=== PATIENT | female | born 1980 | race Caucasian/White ===

== ENCOUNTER 2017-04-26 13:06 | Emergency (ER) | payer OTHER ==
[2014-10-04 14:26] VITALS: BMI 29.2
[~2017-04-26 13:06] MED LIST: ELAVIL75 MG PO; HYDROCODONE-APA1 TAB PO; NEURONTIN800 MG PO; REQUIP5 MG PO
== END 2017-04-26 16:25 | disposition home or self-care (01) ==
LOC: D.ER 13:06
DX: M54.5 Low back pain (principal); S39.012A Strain of muscle, fascia and tendon of lower back, initial encounter; X58.XXXA Exposure to other specified factors, initial encounter; Y93.89 Activity, other specified; Y92.89 Other specified places as the place of occurrence of the external cause; M62.838 Other muscle spasm

== ENCOUNTER 2017-05-27 16:35 | Emergency (ER) | payer OTHER ==
[2014-10-04 14:26] VITALS: BMI 29.2
== END 2017-05-27 18:34 | disposition home or self-care (01) ==
LOC: D.ER 16:35
DX: S69.91XA Unspecified injury of right wrist, hand and finger(s), initial encounter (principal); W22.8XXA Striking against or struck by other objects, initial encounter; F17.200 Nicotine dependence, unspecified, uncomplicated

== ENCOUNTER → 2017-05-27 | Emergency (ER) | payer OTHER ==
[2014-10-04 14:26] VITALS: BMI 29.2
== END | disposition left against medical advice (07) ==
LOC: D.ER 14:35
DX: R52 Pain, unspecified (principal)

== ENCOUNTER 2017-06-22 14:44 | Emergency (ER) | payer OTHER ==
[2014-10-04 14:26] VITALS: BMI 29.2
== END 2017-06-22 18:30 | disposition home or self-care (01) ==
LOC: D.ER 14:44
DX: S99.921A Unspecified injury of right foot, initial encounter (principal); X58.XXXA Exposure to other specified factors, initial encounter; Y93.89 Activity, other specified; Y92.89 Other specified places as the place of occurrence of the external cause; F17.200 Nicotine dependence, unspecified, uncomplicated

== ENCOUNTER 2017-07-22 08:31 | Emergency (ER) | payer OTHER ==
[2014-10-04 14:26] VITALS: BMI 29.2
== END 2017-07-22 09:27 | disposition home or self-care (01) ==
LOC: D.ER 08:31
DX: S93.401A Sprain of unspecified ligament of right ankle, initial encounter (principal); X58.XXXA Exposure to other specified factors, initial encounter; Y93.89 Activity, other specified; Y92.89 Other specified places as the place of occurrence of the external cause; F17.200 Nicotine dependence, unspecified, uncomplicated

== ENCOUNTER 2019-03-16 11:30 | Day surgery (SDC) | payer MEDICAID ==
[2019-03-14 12:51] LABS: HEMATOCRIT 37.8 % (36.0-48.0); HEMOGLOBIN 12.9 g/dL (12-16); MCH 30.4 pg (26.0-34.0); MCHC 34.1 g/dL (31.0-37.0); MCV 88.9 fL (80.0-100.0); MEAN PLATELET VOLUME 10.3 fL (7.4-10.4); RBC 4.25 10x6/uL (4.00-5.40); RDW 13.8 % (11.5-14.5); WBC 5.6 10x3/uL (4.8-10.8)
[~2019-03-16 11:30] MED LIST changes: +PAMELOR 25 MG C25 MG PO; +ROBAXIN500 MG PO; +TRAZODONE HCL150 MG PO
[2019-03-16 13:01] VITALS: BP 128/83; BMI 28.0
[2019-03-16] MEDS ORDERED: HYDROCODON-ACE1 EA10 PO (14:54)
--- NOTE | 2019-03-16 17:08 | NUR ---
PATIENT AMBULATES AROUND ROOM WITHOUT UNSTEADINESS. RIGHT ARM SECURELY IN SLING SHOT SLING. LEFT ARM PIV DC'D WITH TIP INTACT. ASSISTED PATIENT TO DRESS IN PERSONAL CLOTHING
--- NOTE | 2019-03-16 17:23 | NUR ---
DISCHARGE INSTRUCTIONS REVIEWED WITH PATIENT, DISCHARGED HOME VIA WHEELCHAIR TO PRIVATE VEHICLE WITH FAMILY MEMBER
--- NOTE | 2019-03-20 08:25 | OP ---
PATIENT NAME: ARLEN ROSS MEDICAL RECORD: [id number] :82 LOCATION:[facility] ADMISSION DATE: SURGEON: HUYEN HOLLIS MD DATE OF OPERATION: 03/16/2019 PREOPERATIVE DIAGNOSES: SLAP lesion of the right shoulder with impingement syndrome. POSTOPERATIVE DIAGNOSES: SLAP lesion of the right shoulder with impingement syndrome. PROCEDURES: 1. Arthroscopic SLAP repair of the right shoulder. 2. Arthroscopic subacromial decompression, acromioplasty and bursectomy. SURGEON: Huyen Hollis MD ANESTHESIA: General. INTRAOPERATIVE COMPLICATIONS: None. SUMMARY OF PATHOLOGIC FINDINGS: Upon entering the shoulder, the patient was indeed found to have a sagittal tear, complete just anterior to the bicipital labral tendon with looseness that went down to approximately the 3 o'clock position. Ultimately, this labrum was repaired with arthroscopic PushLocks and the anterior acromion, which was excoriated, was made to a type 1. OPERATIVE SUMMARY IN DETAIL: After obtaining the appropriate preoperative orthopedic surgery consent as well as anesthetic consultation, evaluation and clearance, the patient was brought to the operating room and was placed on the operating table in supine position. After general laryngeal mask airway was administered, the patient was placed in lateral decubitus position. All pressure points were well padded to include down leg peroneal pad as well as axillary roll. The patient was held firmly to the operating table using the vacuum pack suction system. Right upper extremity and shoulder were then prepped and draped in routine sterile fashion. The arm was held in the Arthrex traction boom at 30 degrees of forward flexion, 30 degrees of abduction, 10 pounds of traction laterally. Arthroscopy was established in the glenohumeral joint from the posterior portal, anterior portal was established in the anterior safe interval. A tertiary portal was established in portal of Leeanne, debridement of the superior aspect of the labrum from underneath the bicipital labral complex as well as anteriorly where the labrum was torn in a sagittal style as dictated above, was also prepared the anterior surface was. A single PushLock was placed at approximately the 2 o'clock position with good mobilization and sikh of the labrum back to the anterior glenoid. At this point, the ognx-is-fdzx repair was done arthroscopically with a 2-0 FiberWire repairing the torn portion back to the bicipital labral complex and lastly, a PushLock was placed underneath the bicipital labral junction and tied behind the bicipital labral junction in a mattress style fashion. This resulted in good repair of the labrum of the superior anterior quadrant. Having completed this, attention was turned to the subacromial space. [place] tissue ablation system was utilized to denude the undersurface of the acromion of all soft tissue elements to release the coracoacromial ligament. A 5-0 barrel bur was used to perform acromioplasty at the level of acromioclavicular joint. Mild changes were seen in the rotator cuff; however, 0 thickness tearing was noted. OPERATIVE REPORT [id number] ARLEN ROSS Having completed this, arthroscopy portals were closed in routine interrupted fashion using 4-0 Prolene. Sterile dressing was applied. The patient was awakened and taken to the recovery room in stable condition. All final needle and sponge counts were correct. TRANSINT:[id number] Voice Confirmation ID: [id number] DOCUMENT ID: [id number] TELMA BANEGAS, HUYEN BLANK at 0825 CC: [id number] DICTATION DATE: 03/17/19920 POLICY INTERN: 03/17/19 1047 [facility] 03/16/19 [facility] [address] [place] [address]
== END 2019-03-16 17:23 | disposition home or self-care (01) ==
LOC: D.OPS 11:30 → D.PAN 13:15 → D.OPS 17:23
PROVIDERS: Anesthesiology; ATTEND Orthopaedic Surgery
DX: M75.41 Impingement syndrome of right shoulder (principal)

== ENCOUNTER 2019-10-12 10:29 | Emergency (ER) | payer MEDICAID ==
[~2019-10-12] VITALS: Ht 160 cm; Wt 76.8 kg
[~2019-10-12 10:29] MED LIST changes: +HYDROCODON-ACE1 EA10 PO
[2019-10-12 10:33] VITALS: Ht 160 cm; Wt 76.8 kg
[2019-10-12 11:09] LABS: BASOPHILS 0.5 % (0-2); EOSINOPHILS 0.7 % (0-7); HEMATOCRIT 38.9 % (36.0-48.0); HEMOGLOBIN 12.8 g/dL (12-16); IMMATURE GRANULOCYTES 0.2 % (0-5); LYMPHOCYTES 28.6 % (15-50); MCH 30.1 pg (26.0-34.0); MCHC 32.9 g/dL (31.0-37.0); MCV 91.5 fL (80.0-100.0); MEAN PLATELET VOLUME 10.3 fL (7.4-10.4); MONOCYTES 4.8 % (2-11); NEUTROPHILS 65.2 % (40-80); PLATELET COUNT 269 10x3/uL (130-400); RBC 4.25 10x6/uL (4.00-5.40); WBC 5.8 10x3/uL (4.8-10.8)
[2019-10-12 11:15] LABS: UDS - AMPHET NEGATIVE QUAL (NEGATIVE); UDS - BARB NEGATIVE QUAL (NEGATIVE); UDS - BENZO NEGATIVE QUAL (NEGATIVE); UDS - COCAINE NEGATIVE QUAL (NEGATIVE); UDS - OPIATE NEGATIVE QUAL (NEGATIVE); UDS - PCP NEGATIVE QUAL (NEGATIVE); UDS - THC NEGATIVE QUAL (NEGATIVE)
[2019-10-12 11:21] LABS: APPEARANCE CLEAR (CLEAR); BACTERIA MODERATE /hpf (NEGATIVE); BILIRUBIN NEGATIVE (NEGATIVE); COLOR STRAW (YELLOW); EPITHELIAL CELLS OCC /hpf (0-5); GLUCOSE NEGATIVE (NEGATIVE); KETONE NEGATIVE (NEGATIVE); NITRITE NEGATIVE (NEGATIVE); PROTEIN NEGATIVE (NEGATIVE); RED CELLS - URINE NONE SEEN /hpf (0-5); UROBILINOGEN NORMAL (NORMAL); WHITE CELLS - URINE 0-5 /hpf (NEGATIVE)
[2019-10-12 11:28] LABS: ALBUMIN 3.9 g/dL (3.4-5.0); ANION GAP 11.7 mmol/L (8-16); BILIRUBIN - TOTAL 0.35 mg/dL (0.2-1.3); CALCIUM 8.8 mg/dL (8.5-10.1); CARBON DIOXIDE 27.3 mmol/L (21.0-32.0); CREATININE - SERUM 0.9 mg/dL (0.6-1.3); PROTEIN - SERUM 7.4 g/dL (6.4-8.2)
[2019-10-12] MEDS ORDERED: KEPPRA500 MG PO (13:31)
[2019-10-12] MEDS ORDERED: MACROBID100 MG PO (13:35)
[2019-10-12 15:30] VITALS: BP 119/83
== END 2019-10-12 15:34 | disposition home or self-care (01) ==
LOC: D.ER 10:29
PROVIDERS: Family Medicine
DX: R56.9 Unspecified convulsions (principal); N39.0 Urinary tract infection, site not specified; M79.7 Fibromyalgia

== ENCOUNTER 2020-02-22 18:46 | Emergency (ER) | payer SELFPAY ==
[~2020-02-22] VITALS: Ht 160 cm; Wt 79.5 kg
[~2020-02-22 18:46] MED LIST changes: +KEPPRA500 MG PO; +MACROBID100 MG PO
[2020-02-22 18:51] VITALS: Ht 160 cm; Wt 79.5 kg
[2020-02-22 20:24] VITALS: BP 138/90
== END 2020-02-22 20:23 | disposition home or self-care (01) ==
LOC: D.ER 18:46
DX: S00.12XA Contusion of left eyelid and periocular area, initial encounter (principal); S00.11XA Contusion of right eyelid and periocular area, initial encounter; Y09 Assault by unspecified means

== ENCOUNTER 2020-03-28 07:09 | Day surgery (SDC) | payer MEDICAID ==
[~2020-03-28] VITALS: Ht 160 cm; Wt 80.7 kg
[~2020-03-28 07:09] MED LIST changes: +GABAPENTIN300 MG PO; +PROZAC20 MG PO; +TYLENOL W/CODEI1 TAB PO
[2020-03-28 07:50] LABS: HEMATOCRIT 38.6 % (36.0-48.0); HEMOGLOBIN 12.6 g/dL (12-16); MCH 30.8 pg (26.0-34.0); MCHC 32.6 g/dL (31.0-37.0); MCV 94.4 fL (80.0-100.0); MEAN PLATELET VOLUME 11.6 fL (7.4-10.4); RBC 4.09 10x6/uL (4.00-5.40); RDW 13.8 % (11.5-14.5); WBC 4.8 10x3/uL (4.8-10.8)
[2020-03-28 08:12] VITALS: BP 146/94; Ht 160 cm; Wt 80.7 kg
[2020-03-28] MEDS ORDERED: HYDROCODON-ACE1 EA10 PO (09:34)
--- NOTE | 2020-03-30 11:34 | OP ---
PATIENT NAME: ARLEN ROSS MEDICAL RECORD: [id number] :82 LOCATION:[facility] ADMISSION DATE: SURGEON: HUYEN HOLLIS MD DATE OF OPERATION: 03/28/2020 PREOPERATIVE DIAGNOSIS: Nonunion, right metatarsal base fracture. POSTOPERATIVE DIAGNOSIS: Nonunion, right metatarsal base fracture. PROCEDURE: Open reduction internal fixation of the base of the fifth right metatarsal fracture with synthetic bone grafting. SURGEON: Huyen Hollis MD INSOLE TOE SNIPPING MACHINE OPERATOR: CAN Aguilar INTRAOPERATIVE COMPLICATIONS: None. SUMMARY OF PATHOLOGIC FINDINGS: Upon attempts at closed reduction with just percutaneous pinning, the patient's fracture had too much interposed soft tissue obviating the need for opening, removing the soft tissue direct reduction, internal fixation and grafting. OPERATIVE SUMMARY IN DETAIL: After obtaining the appropriate preoperative orthopedic surgery consent as well as anesthetic consultation evaluation and clearance, the patient was brought to the operating room and placed on the operating table in a supine position. After adequate general laryngeal mask airway was administered, tourniquet was placed on the proximal aspect of the right lower extremity. Right lower extremity was then prepped and draped in routine sterile fashion. The leg was elevated and exsanguinated, tourniquet inflated to 350 mmHg. Routine timeout was taken and agreed upon by all given the patient's unique identifiers. Under fluoroscopy, a guide pin was placed from the base of the fifth metatarsal down the shaft of the metatarsal. Attempts at reducing this with just a compression screw were not satisfying. Screw was removed. The small punctiform incision was elongated for direct visualization at the base of the fifth metatarsal. At this point, a combination of rongeur and curettage were utilized to remove interposed fibrous soft tissue, making reduction more possible; however, at this point as the patient was a smoker I felt like it was reasonable to put in Vitoss BA2X bone graft. This was mixed on the back field and placed. At this point, a washer screw was used for compression of the fracture, which radiographically and visually resulted in anatomic episcopal with good fixation. Having completed this, the wound was closed by CAN Aguilar with 2-0 Vicryl followed by 4-0 Prolene. Sterile dressings were applied. Posterior L&U splint was applied. The patient was awakened and taken to the recovery room in stable condition. All final needle and sponge counts were correct. TRANSINT:[id number] Voice Confirmation ID: [id number] DOCUMENT ID: [id number] OPERATIVE REPORT [id number] ARLEN ROSS MD, HUYEN BLANK at 1134 CC: [id number] DICTATION DATE: 03/29/20 113 MANAGER AREA: 03/29/20 1803 [facility] 03/28/20 [place] [id number]
== END 2020-03-28 11:46 | disposition home or self-care (01) ==
LOC: D.OPS 07:09 → D.PAN 10:00 → D.OPS 10:00
PROVIDERS: Anesthesiology; ATTEND Orthopaedic Surgery
DX: S92.351K Displaced fracture of fifth metatarsal bone, right foot, subsequent encounter for fracture with nonunion (principal); X58.XXXD Exposure to other specified factors, subsequent encounter; M79.671 Pain in right foot

== ENCOUNTER → 2020-07-04 20:56 | Outpatient (CLI) | payer MEDICAID ==
[2020-05-23 08:03] VITALS: BMI 28.0
== END | disposition home or self-care (01) ==
LOC: D.LABREF 20:56
PROVIDERS: ATTEND Clinical Nurse Specialist Family Health
DX: L02.611 Cutaneous abscess of right foot (principal)

== ENCOUNTER 2020-07-09 07:28 | Inpatient (IN) | payer MEDICAID ==
[~2020-07-09] VITALS: Ht 160 cm; Wt 70.0 kg
--- NOTE | ~2020-07-09 | HEMODYNAMI ---
PATIENT:ARLEN ROSS MEDICAL RECORD: [id number] : 82 LOCATION:D.MS [facility]2205 ADMISSION DATE: 07/09/20 Generatedon:07/12/202010:35 Patient name: ARLEN ROSS Patient #: [id number] SSN: DO B: 1980 Date of study: 07/12/2020 Page: Of Hemodynamic Procedure Report Patient Data Patient Demographics Procedure consent was obtained First Name: ARLEN Gender: Female Last Name: CODY : 1980 Middle Initial: MERLENE Age: 40 year(s) Patient #: [id number] Race: Unknown Additional ID: [id number] Contact details Address: [address] [place] [address] State: [place] City: [place] Zip code: [address] Admission Admission Data Admission Date: 07/09/2020 Admission Time: 13:28 Room #: D.2205 Procedure Procedure Types Cath Procedure Peripheral Cath Diagnostic Procedure PICC PICC Line Placement Procedure Description Procedure Date Procedure Date: 07/12/2020 Procedure Start Time: 10:29 Procedure End Time: 10:35 Procedure Staff Name Function Fahad Love MD Performing Physician LILIA STOVER RT Monitor Reid Sanchez RT Scrub Kaveh NELSON RN Nurse Procedure Data Cath Procedure Fluoroscopy Diagnostic fluoroscopy Total fluoroscopy Time: 0.6 time: 0.6 min min Hemodynamics Rest Pre Cath Intra NCS Post Cath Procedure Log Time Note 10:10:07 PICC 10:10:08 Time tracking: Regular hours (M-F 7:00 - 5:00) 10:10:10 LILIA STERLING (R) sent for patient. Start room use. 10:10:15 Patient received from Med/Surg to IR Alert and oriented. Tansferred to table in Supine position. 10:10:17 Signed procedure consent form obtained from patient. 10:10:19 Pre-procedure instructions explained to patient. 10:10:21 Use device set IR Diagnostic 10:10:22 Bag Decanter () opened to sterile field. 10:10:23 Sterile Angiographic Pack opened to sterile field. 10:10:23 Tegaderm 4 x 4 (1626W) opened to sterile field. 10:10:32 PowerPICC 5Fr double lumen catheter opened to sterile field. 10:10:38 Pre-op teaching completed and patient verbalized understanding. 10:19:31 Right Arm area was prepped with chlora-prep and draped in sterile fashion 10:27:05 --------ALL STOP TIME OUT------ 10:27:05 Final Timeout: patient, procedure, and site verified with staff and physician. All members of the team are in agreement. 10:28:10 Sharps counted by scrub and verified by R.N. 10:28:11 Procedure started. 10:28:12 Full Disclosure recording started 10:29:01 Local anesthetic to right arm with Lidocaine 1% by Fahad Love MD.INITIAL ACCESS ONLY 10:29:03 Venous access obtained using ultrasound guidance. 10:30:30 PICC line was trimmed to 41cm and advanced to the superior vena cava.Position verified under fluoroscopy. 10:33:45 Procedure ended.(Physican Out) 10:34:32 Fluoroscopy time 00.60 minutes. 10:34:34 Dose Area Product 4 mGy/cm. 10:34:36 Sharps counted by scrub and verified by R.N. 10:34:51 Post right arm:stable, soft, clean and dry 10:34:54 Post procedure instruction explained to patient.Patient verbalizes understanding. 10:34:58 Procedure and supply charges have been captured, reviewed, submitted and are correct. 10:35:29 Procedure ended. 10:35:29 Full Disclosure recording stopped Device Usage Item Name Manufacture Quantity Catalog Hospital Part Current Minimal Lot# / Number Charge Number Stock Stock Serial# Code Bag Decanter Microtek 1 [id number] 5 () [employer] Sterile Cardinal [address] [id number] 5 Angiographic Health Pack Tegaderm 4 x 3M 1 1626W [id number] [id number] 5 4 (1626W) [facility] [id number] [id number] 5 5Fr double lumen catheter Signature Audit [place] Stage Time Signature Unsigned Intra-Procedure 07/12/2020 LILIA STOVER RT 10:35:47 AM (R) [facility] [address] [place] [id number]
[2020-07-09] MEDS ORDERED: DILAUDID4 MG PO (14:03)
[2020-07-09 14:22] LABS: BASOPHILS 0.7 % (0-2); EOSINOPHILS 2.3 % (0-7); HEMATOCRIT 38.5 % (36.0-48.0); HEMOGLOBIN 11.9 g/dL (12-16); LYMPHOCYTES 37.7 % (15-50); MCH 29.7 pg (26.0-34.0); MCHC 30.9 g/dL (31.0-37.0); MEAN PLATELET VOLUME 10.7 fL (7.4-10.4); MONOCYTES 9.2 % (2-11); NEUTROPHILS 50.1 % (40-80); PLATELET COUNT 267 10x3/uL (130-400); RBC 4.01 10x6/uL (4.00-5.40); RDW 14.8 % (11.5-14.5); WBC 5.6 10x3/uL (4.8-10.8)
[2020-07-09 14:35] LABS: ANION GAP 12.4 mmol/L (8-16); C-REACTIVE PROTEIN 0.6 mg/dL (0.0-0.9); CALCIUM 8.7 mg/dL (8.5-10.1); CARBON DIOXIDE 29.3 mmol/L (21.0-32.0); CREATININE - SERUM 0.9 mg/dL (0.6-1.3); POTASSIUM - SERUM 3.7 mmol/L (3.5-5.1)
[2020-07-09 14:51] VITALS: BP 129/92; BMI 27.3
[2020-07-09 15:30] LABS: ERYTHROCYTE SEDIMENTATION RATE 18 mm/hr (0-20)
[2020-07-09 18:08] VITALS: BP 129/88
[2020-07-09 20:00] VITALS: BP 111/82
--- NOTE | 2020-07-09 20:00 | NUR ---
ALERT RESTING IN BED, DENIES PAIN OR NEEDS AT THIS TIME, SEE SHIFT ASSESSMENT, CALL LIGHT IN REACH
[2020-07-10] VITALS: BP 103/63
[2020-07-10 04:00] VITALS: BP 106/64
[2020-07-10 06:46] LABS: BASOPHILS 0.4 % (0-2); EOSINOPHILS 2.7 % (0-7); HEMATOCRIT 33.8 % (36.0-48.0); HEMOGLOBIN 10.9 g/dL (12-16); IMMATURE GRANULOCYTES 0.2 % (0-5); LYMPHOCYTES 26.8 % (15-50); MCH 30.8 pg (26.0-34.0); MCHC 32.2 g/dL (31.0-37.0); MCV 95.5 fL (80.0-100.0); MEAN PLATELET VOLUME 10.8 fL (7.4-10.4); MONOCYTES 8.6 % (2-11); NEUTROPHILS 61.3 % (40-80); PLATELET COUNT 231 10x3/uL (130-400); RBC 3.54 10x6/uL (4.00-5.40); WBC 4.9 10x3/uL (4.8-10.8)
[2020-07-10 06:59] LABS: CALC OSMOLALITY 275 mosm/kg (275-300); CALCIUM 8.3 mg/dL (8.5-10.1); CARBON DIOXIDE 25.8 mmol/L (21.0-32.0); CHLORIDE - SERUM 106 mmol/L (98-107); CREATININE - SERUM 0.8 mg/dL (0.6-1.3); GLUCOSE 94 mg/dL (74-106); SODIUM 140 mmol/L (136-145); UREA NITROGEN 5 mg/dL (7-18); eGFR NON AFRICAN AMERICAN 85 mL/min (90-120)
[2020-07-10 07:00] LABS: POTASSIUM - SERUM 4.3 mmol/L (3.5-5.1)
[2020-07-10 09:08] VITALS: BP 98/68
[2020-07-10 12:14] VITALS: BP 130/62
--- NOTE | 2020-07-10 12:53 | NUR ---
PATIENT SITTING UP IN BED EATING LUNCH. WANTS SPRITE WITH ICE. DENIES ANY FURTHER NEEDS AT THIS TIME. FREE FROM SIGNS OF DISTRESS. WILL CONTINUE TO MONITOR THROUGHTOUT THE DAY.
[2020-07-10 14:00] VITALS: Ht 160 cm; Wt 70.0 kg
[2020-07-10 17:07] VITALS: BP 112/66
[2020-07-10 20:00] VITALS: BP 119/87
[2020-07-11] VITALS (9 sets, daily range): BP systolic 94–120; BP diastolic 49–72
--- NOTE | 2020-07-11 03:56 | NUR ---
PT UP TO SHOWER FOR SURGERY-HIBICLENS USED AND COMPLETE LINEN CHANGE COMPLETED. HAS REMAINED NPO SINCE MIDNIGHT. CONSENTS HAVE BEEN SIGNED. JEWERLY REMOVED. CALL LIGHT IN REACH
[2020-07-11 06:27] LABS: BASOPHILS 0.9 % (0-2); EOSINOPHILS 4.2 % (0-7); HEMATOCRIT 31.4 % (36.0-48.0); HEMOGLOBIN 10.1 g/dL (12-16); IMMATURE GRANULOCYTES 0.2 % (0-5); LYMPHOCYTES 31.4 % (15-50); MCH 30.6 pg (26.0-34.0); MCHC 32.2 g/dL (31.0-37.0); MCV 95.2 fL (80.0-100.0); MEAN PLATELET VOLUME 10.8 fL (7.4-10.4); MONOCYTES 7.7 % (2-11); NEUTROPHILS 55.6 % (40-80); PLATELET COUNT 219 10x3/uL (130-400); RDW 15.1 % (11.5-14.5); WBC 4.3 10x3/uL (4.8-10.8)
[2020-07-11 07:22] LABS: ANION GAP 11.5 mmol/L (8-16); CARBON DIOXIDE 23.2 mmol/L (21.0-32.0); CREATININE - SERUM 0.9 mg/dL (0.6-1.3); POTASSIUM - SERUM 3.7 mmol/L (3.5-5.1); VANCOMYCIN - TROUGH 11.5 ug/mL (10.0-20.0)
--- NOTE | 2020-07-11 10:54 | NUR ---
PRE-OP COMPLETE
--- NOTE | 2020-07-11 13:24 | NUR ---
RECEIVED FROM PACU TO FLOOR
--- NOTE | 2020-07-11 13:43 | MORECARE ---
CASE MANAGEMENT DISCHARGE SUMMARY PATIENT: ARLEN ROSS UNIT: [id number] ADM DATE: 07/09/20 AGE: 40 : [birth year] SEX: F ROOM/BED: D.2205 AUTHOR: LATONYA,DOC PHYSICIAN: REFERRING PHYSICIAN: HUYEN HOLLIS MD DATE OF SERVICE: 07/11/20 Discharge Plan Patient Name: ARLEN ROSS Facility: [facility]:[place] : 1980 Planned Disposition: Home or Self Care Anticipated Discharge Date: Discharge Date: Expected LOS: Initial Reviewer: [email or web address] Initial Review Date: 07/09/2020 Generated: 07/11/20 2:43 pm Comments DCP- Discharge Planning Updated by [email or web address]: Darcy Townsend on 07/11/20 12:[address] Patient Name: ARLEN ROSS Admission Status: Elective Accout number: [id number] Admission Date: 07-09-2020 : 1980 Admission Diagnosis: Attending: HUYEN HOLLIS Current LOS: 2 Anticipated DC Date: Planned Disposition: Home or Self Care Primary Insurance: MEDICAID [place] Discharge Planning Comments: CM met with patient to complete initial dc planning assessment. CM educated patient on the CM role and verbal consent given by patient to complete assessment. Patient lives at home with her where she is independent with her care. At discharge patient plans to return home and feels this is a safe discharge. CM discussed availability of home health, rehab services, and medical equipment. She has a knee scooter at home. Her will be her recycle driver home at discharge. Patient denied known discharge needs at this time. CM will continue to follow and will assist as needed with dc plans/needs. Real Estate Listing Consultant: Darcy Townsend DCPIA - Discharge Planning Initial Assessment Updated by [email or web address]: Darcy Townsend on 07/11/20 1:35 pm * Is the patient Alert and Oriented? Yes * How many steps to enter\exit or inside your home? * PCP [facility] * Pharmacy [facility] * Preadmission Environment Home with Family * ADLs Independent * Equipment Other * Other Equipment KNEE SCOOTER * List name and contact numbers for known caregivers / representatives who currently or will assist patient after discharge: SILVIA ROSS * Verbal permission to speak to the caregivers and representatives has been obtained from the patient. N/A * Community resources currently utilized None * Additional services required to return to the preadmission environment? No * Can the patient safely return to the preadmission environment? Yes * Has this patient been hospitalized within the prior 30 days at any hospital? No Patient Name: ARLEN ROSS Page 35037 at 1343 All edits/amendments must be made on the electronic document DICTATION DATE: 07/11/20 1343 MASONRY CONTRACTOR: GRZEGORZ 07/11/20 1343 RPT#: [id number] DC DATE: STATUS: ADM IN [facility] [address] [place] [address] END OF REPORT
--- NOTE | 2020-07-11 20:00 | NUR ---
PATIENT RESTING IN BED WITH AT BEDSIDE. NO S/S OF ACUTE DISTRESS. NO C/O AT THIS TIME. PATIENT HAS IV IN RIGHT HAND, NORMAL SALINE @ 100 ML/HR. IV IS PATENT WITHOUT REDNESS, SWELLING, OR TENDERNESS. PATIENT HAS MORPHINE RAMP ATTENDANT, AND SAYS THAT IT "SORT OF HELPS WITH THE PAIN BUT NOT MUCH." PATIENT RIGHT FOOT IS WRAPPED WITH DUNG BANDAGE, DRESSING C/D/I. PATEINT IS NON WEIGHT BEARING ON THAT FOOT AND /US HELP HER TO THE BATHROOM. CALL LIGHT WITHIN REACH. WILL CONTINUE TO MONITOR.
--- NOTE | 2020-07-11 20:13 | NUR ---
PATIENT LEFT FLOOR VIA WHEELCHAIR WITH TO VISIT WITH FAMILY AT ER ENTRANCE. IV IS SALINE LOC. BOTH HAD MASKS ON. WILL CONTINUE TO MONITOR.
--- NOTE | 2020-07-11 20:35 | NUR ---
PATIENT HAS ARRIVED BACK AT ROOM. NO S/S OF DISTRESS. NO C/O AT THIS TIME. IV WAS RESTARTED. CALL LIGHT WITHIN REACH. WILL CONTINUE TO MONITOR.
[2020-07-12] VITALS: BP 124/79
--- NOTE | 2020-07-12 03:21 | NUR ---
I have reviewed this patient and I concur with the Shift Assessment completed by the Licensed Practical Nurse today this shift.
[2020-07-12 04:00] VITALS: BP 112/72; BP 131/76
[2020-07-12 06:52] LABS: BASOPHILS 0.4 % (0-2); EOSINOPHILS 0 % (0-7); HEMATOCRIT 32.3 % (36.0-48.0); HEMOGLOBIN 10.2 g/dL (12-16); IMMATURE GRANULOCYTES 0.1 % (0-5); LYMPHOCYTES 9.7 % (15-50); MCH 29.9 pg (26.0-34.0); MCHC 31.6 g/dL (31.0-37.0); MCV 94.7 fL (80.0-100.0); MEAN PLATELET VOLUME 10.5 fL (7.4-10.4); NEUTROPHILS 85.8 % (40-80); PLATELET COUNT 199 10x3/uL (130-400); RBC 3.41 10x6/uL (4.00-5.40); RDW 14.7 % (11.5-14.5)
[2020-07-12 07:45] LABS: CALC OSMOLALITY 272 mosm/kg (275-300); CALCIUM 8.7 mg/dL (8.5-10.1); CARBON DIOXIDE 23.8 mmol/L (21.0-32.0); CHLORIDE - SERUM 105 mmol/L (98-107); CREATININE - SERUM 0.8 mg/dL (0.6-1.3); GLUCOSE 120 mg/dL (74-106); POTASSIUM - SERUM 3.7 mmol/L (3.5-5.1); SODIUM 137 mmol/L (136-145); UREA NITROGEN 6 mg/dL (7-18); eGFR NON AFRICAN AMERICAN 85 mL/min (90-120)
[2020-07-12 07:59] LABS: WBC 7.9 10x3/uL (4.8-10.8)
--- NOTE | 2020-07-12 09:32 | MORECARE ---
CASE MANAGEMENT DISCHARGE SUMMARY PATIENT: ARLEN ROSS UNIT: [id number] ADM DATE: 07/09/20 AGE: 40 : [birth year] SEX: F ROOM/BED: D.2205 AUTHOR: LATONYA,DOC PHYSICIAN: REFERRING PHYSICIAN: HUYEN HOLLIS MD DATE OF SERVICE: 07/12/20 Discharge Plan Patient Name: ARLEN ROSS Facility: [facility]:[place] : 1980 Planned Disposition: Home or Self Care Anticipated Discharge Date: Discharge Date: Expected LOS: Initial Reviewer: [email or web address] Initial Review Date: 07/09/2020 Generated: 07/12/20 10:31 am DCP- Discharge Planning Updated by [email or web address]: Darcy Townsend on 07/11/20 12:[address] Patient Name: ARLEN ROSS Admission Status: Elective Accout number: [id number] Admission Date: 07-09-2020 : 1980 Admission Diagnosis: Attending: HUYEN HOLLIS Current LOS: 2 Anticipated DC Date: Planned Disposition: Home or Self Care Primary Insurance: MEDICAID [place] Discharge Planning Comments: CM met with patient to complete initial dc planning assessment. CM educated patient on the CM role and verbal consent given by patient to complete assessment. Patient lives at home with her where she is independent with her care. At discharge patient plans to return home and feels this is a safe discharge. CM discussed availability of home health, rehab services, and medical equipment. She has a knee scooter at home. Her will be her ambulance driver paramedic home at discharge. Patient denied known discharge needs at this time. CM will continue to follow and will assist as needed with dc plans/needs. Rectifying Attendant: Darcy Townsend DCPIA - Discharge Planning Initial Assessment Updated by [email or web address]: Darcy Townsend on 07/11/20 1:35 pm * Is the patient Alert and Oriented? Yes * How many steps to enter\exit or inside your home? * PCP [facility] * Pharmacy [facility] * Preadmission Environment Home with Family * ADLs Independent * Equipment Other * Other Equipment KNEE SCOOTER * List name and contact numbers for known caregivers / representatives who currently or will assist patient after discharge: SILVIA ROSS * Verbal permission to speak to the caregivers and representatives has been obtained from the patient. N/A * Community resources currently utilized None * Additional services required to return to the preadmission environment? No * Can the patient safely return to the preadmission environment? Yes * Has this patient been hospitalized within the prior 30 days at any hospital? No External Providers External Provider: [facility] Next Contact Date: Service Request Date: Service Type: Resolution: Reviewer: Comments: Last DP export: 07/11/20 12:43 p Patient Name: ARLEN ROSS Page [phone] at 0932 All edits/amendments must be made on the electronic document DICTATION DATE: 07/12/20931 LENS MOLDER: GRZEGORZ 07/12/20931 RPT#: [id number] DC DATE: STATUS: ADM IN [facility] [address] [place] [address] END OF REPORT
--- NOTE | 2020-07-12 10:00 | MORECARE ---
CASE MANAGEMENT DISCHARGE SUMMARY PATIENT: ARLEN ROSS UNIT: [id number] ADM DATE: 07/09/20 AGE: 40 : [birth year] SEX: F ROOM/BED: D.2205 AUTHOR: LATONYA,DOC PHYSICIAN: REFERRING PHYSICIAN: HUYEN HOLLIS MD DATE OF SERVICE: 07/12/20 Discharge Plan Patient Name: ARLEN ROSS Facility: [facility]:[place] : 1980 Planned Disposition: Home or Self Care Anticipated Discharge Date: Discharge Date: Expected LOS: Initial Reviewer: [email or web address] Initial Review Date: 07/09/2020 Generated: 07/12/20 10:59 am DCP- Discharge Planning Updated by [email or web address]: Darcy Townsend on 07/11/20 12:[address] Patient Name: ARLEN ROSS Admission Status: Elective Accout number: [id number] Admission Date: 07-09-2020 : 1980 Admission Diagnosis: Attending: HUYEN HOLLIS Current LOS: 2 Anticipated DC Date: Planned Disposition: Home or Self Care Primary Insurance: MEDICAID [place] Discharge Planning Comments: CM met with patient to complete initial dc planning assessment. CM educated patient on the CM role and verbal consent given by patient to complete assessment. Patient lives at home with her where she is independent with her care. At discharge patient plans to return home and feels this is a safe discharge. CM discussed availability of home health, rehab services, and medical equipment. She has a knee scooter at home. Her will be her bookmobile driver home at discharge. Patient denied known discharge needs at this time. CM will continue to follow and will assist as needed with dc plans/needs. Load Out Supervisor: Darcy Townsend DCPIA - Discharge Planning Initial Assessment Updated by [email or web address]: Darcy Townsend on 07/11/20 1:35 pm * Is the patient Alert and Oriented? Yes * How many steps to enter\exit or inside your home? * PCP [facility]I * [facility] * Preadmission Environment Home with Family * ADLs Independent * Equipment Other * Other Equipment KNEE SCOOTER * List name and contact numbers for known caregivers / representatives who currently or will assist patient after discharge: SILVIA ROSS * Verbal permission to speak to the caregivers and representatives has been obtained from the patient. N/A * Community resources currently utilized None * Additional services required to return to the preadmission environment? No * Can the patient safely return to the preadmission environment? Yes * Has this patient been hospitalized within the prior 30 days at any hospital? No External Providers External Provider: [facility] Next Contact Date: Service Request Date: Service Type: Resolution: Reviewer: Comments: Last DP export: 07/12/20 8:32 a Patient Name: ARLEN ROSS Page 59514 at 1000 All edits/amendments must be made on the electronic document DICTATION DATE: 07/12/20 1000 COMPREHENSIVE ADVISOR: GRZEGORZ 07/12/20 1000 RPT#: [id number] DC DATE: STATUS: ADM IN [facility] [address] [place] [address] END OF REPORT
--- NOTE | 2020-07-12 10:06 | NUR ---
PATIENT LEFT FLOOR VIA BED TO PICC LINE PLACEMENT PROCEDURE.
[2020-07-12 10:43] VITALS: BP 125/84
[2020-07-12] MEDS ORDERED: HYDROCODON-ACE1 EA10 PO (10:53)
--- NOTE | 2020-07-12 11:54 | MORECARE ---
CASE MANAGEMENT DISCHARGE SUMMARY PATIENT: ARLEN ROSS UNIT: [id number] ADM DATE: 07/09/20 AGE: 40 : [birth year] SEX: F ROOM/BED: D.2205 AUTHOR: LATONYA,DOC PHYSICIAN: REFERRING PHYSICIAN: HUYEN HOLLIS MD DATE OF SERVICE: 07/12/20 Discharge Plan Patient Name: ARLEN ROSS Facility: [facility]:[place] : 1980 Planned Disposition: Home or Self Care Anticipated Discharge Date: Discharge Date: Expected LOS: Initial Reviewer: [email or web address] Initial Review Date: 07/09/2020 Generated: 07/12/20 12:53 pm DCP- Discharge Planning Updated by [email or web address]: Darcy Townsend on 07/11/20 12:[address] Patient Name: ARLEN ROSS Admission Status: Elective Accout number: [id number] Admission Date: 07-09-2020 : 1980 Admission Diagnosis: Attending: HUYEN HOLLIS Current LOS: 2 Anticipated DC Date: Planned Disposition: Home or Self Care Primary Insurance: MEDICAID [place] Discharge Planning Comments: CM met with patient to complete initial dc planning assessment. CM educated patient on the CM role and verbal consent given by patient to complete assessment. Patient lives at home with her where she is independent with her care. At discharge patient plans to return home and feels this is a safe discharge. CM discussed availability of home health, rehab services, and medical equipment. She has a knee scooter at home. Her will be her city route driver home at discharge. Patient denied known discharge needs at this time. CM will continue to follow and will assist as needed with dc plans/needs. Can Capper: Darcy Townsend DCPIA - Discharge Planning Initial Assessment Updated by [email or web address]: Darcy Townsend on 07/11/20 1:35 pm * Is the patient Alert and Oriented? Yes * How many steps to enter\exit or inside your home? * PCP [facility]I * Pharmacy [facility] * Preadmission Environment Home with Family * ADLs Independent * Equipment Other * Other Equipment KNEE SCOOTER * List name and contact numbers for known caregivers / representatives who currently or will assist patient after discharge: SILVIA ROSS * Verbal permission to speak to the caregivers and representatives has been obtained from the patient. N/A * Community resources currently utilized None * Additional services required to return to the preadmission environment? No * Can the patient safely return to the preadmission environment? Yes * Has this patient been hospitalized within the prior 30 days at any hospital? No Last DP export: 07/12/20 9:00 a Patient Name: ARLEN ROSS Page 08149 at 1154 All edits/amendments must be made on the electronic document DICTATION DATE: 07/12/20 1153 APARTMENT GROUNDSKEEPER: GRZEGORZ 07/12/20 1153 RPT#: [id number] DC DATE: STATUS: ADM IN [facility] [address] [place] [address] END OF REPORT
[2020-07-12 13:03] VITALS: BP 137/78
--- NOTE | 2020-07-12 13:50 | MORECARE ---
CASE MANAGEMENT DISCHARGE SUMMARY PATIENT: ARLEN ROSS UNIT: [id number] ADM DATE: 07/09/20 AGE: 40 : [birth year] SEX: F ROOM/BED: D.2205 AUTHOR: LATONYA,DOC PHYSICIAN: REFERRING PHYSICIAN: HUYEN HOLLIS MD DATE OF SERVICE: 07/12/20 Discharge Plan Patient Name: ARLEN ROSS Facility: [facility]:[place] : 1980 Planned Disposition: Home or Self Care Anticipated Discharge Date: Discharge Date: Expected LOS: Initial Reviewer: [email or web address] Initial Review Date: 07/09/2020 Generated: 07/12/20 2:49 pm Comments DCP- Discharge Planning Updated by [email or web address]: Darcy Townsend on 07/12/20 12:[address] [facility] HAS PATIENT SCHEDULED FOR START OF CARE TOMORROW, HER IV ABX START AT 0800 PATIENT PLANS ON DOING HER EVENING DOSE TONIGHT. CM TO FOLLOW AND ASSIST NEEDED DCP- Discharge Planning Updated by [email or web address]: Darcy Townsend on 07/12/20 10:[address] PATIENT WILL BE DISCHARGING HOME TODAY WITH IV ABX AND HOME HEALTH [facility] FOR [facility] AND [place] I SPOKE WITH [facility] AT [place] AND THEY ARE GOING TO MIX AND HEAD THIS WAY. CM WILL CONTINUE TO FOLLOW AND ASSIST NEEDED DCP- Discharge Planning Updated by [id number]: Darcy Townsend on 07/11/20 12:[address] Patient Name: ARLEN ROSS Admission Status: Elective Accout number: [id number] Admission Date: 07-09-2020 : 1980 Admission Diagnosis: Attending: HUYEN HOLLIS Current LOS: 2 Anticipated DC Date: Planned Disposition: Home or Self Care Primary Insurance: MEDICAID [place] Discharge Planning Comments: CM met with patient to complete initial dc planning assessment. CM educated patient on the CM role and verbal consent given by patient to complete assessment. Patient lives at home with her where she is independent with her care. At discharge patient plans to return home and feels this is a safe discharge. CM discussed availability of home health, rehab services, and medical equipment. She has a knee scooter at home. Her will be her school bus driver/teacher assistant home at discharge. Patient denied known discharge needs at this time. CM will continue to follow and will assist as needed with dc plans/needs. Insurance Case Manager: Darcy Townsend DCPIA - Discharge Planning Initial Assessment Updated by [email or web address]: Darcy Townsend on 07/11/20 1:35 pm * Is the patient Alert and Oriented? Yes * How many steps to enter\exit or inside your home? * PCP [facility] * Pharmacy [facility] * Preadmission Environment Home with Family * ADLs Independent * Equipment Other * Other Equipment KNEE SCOOTER * List name and contact numbers for known caregivers / representatives who currently or will assist patient after discharge: SILVIA CODY * Verbal permission to speak to the caregivers and representatives has been obtained from the patient. N/A * Community resources currently utilized None * Additional services required to return to the preadmission environment? No * Can the patient safely return to the preadmission environment? Yes * Has this patient been hospitalized within the prior 30 days at any hospital? No Coverage Notice Reviewer: [email or web address] - Darcy Townsend Notice Issued Date-Time: 07/12/2020 9:00 Notice Type: Patient Choice Letter Notice Delivered To: Patient Relationship to Patient: Heavy Equipment Rental Manager Name: Delivery Method: HAND - Hand Delivered Laureen Days: Prior Verbal Notification: Recipient Understood Notice: Yes Recipient Signature: Yes Med Rec Note Co-signed by Attending: Coverage Notice Comment: Last DP export: 07/12/20 10:54 a Patient Name: ARLEN ROSS Page 92858 at 1350 All edits/amendments must be made on the electronic document DICTATION DATE: 07/12/20 1349 SURGICAL GARMENT ASSEMBLER: GRZEGORZ 07/12/20 1349 RPT#: [id number] DC DATE: STATUS: ADM IN [facility] [address] [place] [address] END OF REPORT
--- NOTE | 2020-07-12 16:34 | NUR ---
DISCHARGE TEACHING COMPLETE. PATIENT DENIES ANY FURTHER QUESTIONS. IV CATH REMOVED. CATH TIP INTACT. BELONGINGS GATHERED. WAITING ON RIDE.
--- NOTE | 2020-07-12 17:20 | NUR ---
PATIENT LEFT FLOOR VIA WHEELCHAIR TO HOME.
--- NOTE | 2020-07-15 08:50 | MORECARE ---
CASE MANAGEMENT DISCHARGE SUMMARY PATIENT: ARLEN ROSS UNIT: [id number] ADM DATE: 07/09/20 AGE: 40 : [birth year] SEX: F ROOM/BED: D.2207 AUTHOR: LATONYA,DOC PHYSICIAN: REFERRING PHYSICIAN: HUYEN HOLLIS MD DATE OF SERVICE: 07/15/20 Discharge Plan Patient Name: ARLEN ROSS Facility: [facility]:[place] : 1980 Planned Disposition: Home or Self Care Anticipated Discharge Date: Discharge Date: 07/12/2020 Expected LOS: Initial Reviewer: [email or web address] Initial Review Date: 07/09/2020 Generated: 07/15/20 9:49 am Comments DCP- Discharge Planning Updated by [email or web address]: Darcy Townsend on 07/12/20 12:[address] [facility] HAS PATIENT SCHEDULED FOR START OF CARE TOMORROW, HER IV ABX START AT 0800 PATIENT PLANS ON DOING HER EVENING DOSE TONIGHT. CM TO FOLLOW AND ASSIST NEEDED DCP- Discharge Planning Updated by [email or web address]: Darcy Townsend on 07/12/20 10:[address] PATIENT WILL BE DISCHARGING HOME TODAY WITH IV ABX AND HOME HEALTH [facility] FOR [facility] AND [place] I SPOKE WITH [facility] AT [facility] AND THEY ARE GOING TO MIX AND HEAD THIS WAY. CM WILL CONTINUE TO FOLLOW AND ASSIST NEEDED DCP- Discharge Planning Updated by [email or web address]: Darcy Townsend on 07/11/20 12:[address] Patient Name: ARLEN ROSS Admission Status: Elective Accout number: [id number] Admission Date: 07-09-2020 : 1980 Admission Diagnosis: Attending: HUYEN HOLLIS Current LOS: 2 Anticipated DC Date: Planned Disposition: Home or Self Care Primary Insurance: MEDICAID [place] Discharge Planning Comments: CM met with patient to complete initial dc planning assessment. CM educated patient on the CM role and verbal consent given by patient to complete assessment. Patient lives at home with her where she is independent with her care. At discharge patient plans to return home and feels this is a safe discharge. CM discussed availability of home health, rehab services, and medical equipment. She has a knee scooter at home. Her will be her team driver home at discharge. Patient denied known discharge needs at this time. CM will continue to follow and will assist as needed with dc plans/needs. Apartment Rental Clerk: Darcy Townsend DCPIA - Discharge Planning Initial Assessment Updated by [email or web address]: Darcy Townsend on 07/11/20 1:35 pm * Is the patient Alert and Oriented? Yes * How many steps to enter\exit or inside your home? * PCP [facility] * Pharmacy [facility] * Preadmission Environment Home with Family * ADLs Independent * Equipment Other * Other Equipment KNEE SCOOTER * List name and contact numbers for known caregivers / representatives who currently or will assist patient after discharge: SILVIA FORDAHAN * Verbal permission to speak to the caregivers and representatives has been obtained from the patient. N/A * Community resources currently utilized None * Additional services required to return to the preadmission environment? No * Can the patient safely return to the preadmission environment? Yes * Has this patient been hospitalized within the prior 30 days at any hospital? No Coverage Notice Reviewer: [id number] - Darcy Townsend Notice Issued Date-Time: 07/12/2020 9:00 Notice Type: Patient Choice Letter Notice Delivered To: Patient Relationship to Patient: Sampler Ovens Name: Delivery Method: HAND - Hand Delivered Laureen Days: Prior Verbal Notification: Recipient Understood Notice: Yes Recipient Signature: Yes Med Rec Note Co-signed by Attending: Coverage Notice Comment: Last DP export: 07/12/20 12:50 p Patient Name: ARLEN ROSS Page 80052 at 0850 All edits/amendments must be made on the electronic document DICTATION DATE: 07/15/20 0850 LARRIMAN HELPER: GRZEGORZ 07/15/20 0850 RPT#: [id number] DC DATE:07/12/20 STATUS: DIS IN [facility] [address] [place] [address] END OF REPORT
== END 2020-07-12 17:20 | disposition home health service (06) | DRG 541 ==
LOC: D.MRI 07:28 → D.MS 13:28
PROVIDERS: ADMIT Orthopaedic Surgery; ATTEND Orthopaedic Surgery
DX: M86.9 Osteomyelitis, unspecified (principal); F17.200 Nicotine dependence, unspecified, uncomplicated

== ENCOUNTER → 2020-07-15 17:34 | Outpatient (CLI) | payer MEDICAID ==
[2020-07-10 14:00] VITALS: BMI 27.3
[~2020-07-15 17:34] MED LIST changes: +DILAUDID4 MG PO
[2020-07-15 18:32] LABS: EOSINOPHILS 4.7 % (0-7); HEMATOCRIT 35.9 % (36.0-48.0); HEMOGLOBIN 11.3 g/dL (12-16); IMMATURE GRANULOCYTES 0.2 % (0-5); LYMPHOCYTES 17.6 % (15-50); MCH 30.1 pg (26.0-34.0); MCHC 31.5 g/dL (31.0-37.0); MCV 95.7 fL (80.0-100.0); MEAN PLATELET VOLUME 11.5 fL (7.4-10.4); MONOCYTES 8.9 % (2-11); NEUTROPHILS 67.6 % (40-80); PLATELET COUNT 192 10x3/uL (130-400); RBC 3.75 10x6/uL (4.00-5.40); RDW 15.3 % (11.5-14.5); WBC 5.8 10x3/uL (4.8-10.8)
[2020-07-15 18:38] LABS: C-REACTIVE PROTEIN 3.6 mg/dL (0.0-0.9); CREATININE - SERUM 0.9 mg/dL (0.6-1.3); VANCOMYCIN - TROUGH 13.7 ug/mL (10.0-20.0)
[2020-07-15 19:35] LABS: ERYTHROCYTE SEDIMENTATION RATE 19 mm/hr (0-20)
== END | disposition home or self-care (01) ==
LOC: D.LABREF 17:34
PROVIDERS: ATTEND Family Medicine
DX: M86.671 Other chronic osteomyelitis, right ankle and foot (principal)

== ENCOUNTER → 2020-07-22 17:40 | Outpatient (CLI) | payer MEDICAID ==
[2020-07-10 14:00] VITALS: BMI 27.3
[~2020-07-22 17:40] MED LIST changes: +ELIQUIS5 MG PO; +VANCOMYCIN H1 G/VIA1 IV
== END | disposition home or self-care (01) ==
LOC: D.US 14:30
PROVIDERS: ATTEND Orthopaedic Surgery
DX: R22.31 Localized swelling, mass and lump, right upper limb (principal)

== ENCOUNTER → 2020-07-22 19:25 | Outpatient (CLI) | payer MEDICAID ==
[2020-07-10 14:00] VITALS: BMI 27.3
[2020-07-22 21:55] LABS: BASOPHILS 1.7 % (0-2); EOSINOPHILS 4.1 % (0-7); HEMATOCRIT 34.5 % (36.0-48.0); HEMOGLOBIN 10.8 g/dL (12-16); IMMATURE GRANULOCYTES 0.2 % (0-5); LYMPHOCYTES 20.1 % (15-50); MCH 30.3 pg (26.0-34.0); MCHC 31.3 g/dL (31.0-37.0); MCV 96.6 fL (80.0-100.0); MEAN PLATELET VOLUME 11.9 fL (7.4-10.4); MONOCYTES 9.4 % (2-11); NEUTROPHILS 64.5 % (40-80); PLATELET COUNT 217 10x3/uL (130-400); RBC 3.57 10x6/uL (4.00-5.40); RDW 15.1 % (11.5-14.5); WBC 4.7 10x3/uL (4.8-10.8)
[2020-07-22 22:16] LABS: C-REACTIVE PROTEIN 1.9 mg/dL (0.0-0.9); CREATININE - SERUM 0.8 mg/dL (0.6-1.3); VANCOMYCIN - TROUGH 16.6 ug/mL (10.0-20.0)
[2020-07-22 22:53] LABS: ERYTHROCYTE SEDIMENTATION RATE 11 mm/hr (0-20)
== END | disposition home or self-care (01) ==
LOC: D.LABREF 19:25
PROVIDERS: ATTEND Orthopaedic Surgery
DX: M86.8X7 Other osteomyelitis, ankle and foot (principal)

== ENCOUNTER 2020-07-22 22:37 | Inpatient (IN) | payer MEDICAID ==
[~2020-07-22] VITALS: Ht 160 cm; Wt 78.0 kg
--- NOTE | ~2020-07-22 | HEMODYNAMI ---
PATIENT:ARLEN ROSS MEDICAL RECORD: [id number] : [birth year] LOCATION:[id number] ADMISSION DATE: 07/22/20 Generatedon:07/24/202010:39 Patient name: ARLEN ROSS Patient #: [id number] SSN: DO B: 1980 Date of study: 07/24/2020 Page: Of Hemodynamic Procedure Report Patient Data Patient Demographics Procedure consent was obtained First Name: ARLEN Gender: Female Last Name: CODY : 1980 Middle Initial: MERLENE Age: 40 year(s) Patient #: [id number] Race: Unknown Additional ID: [id number] Contact details Address: [address] [place] [address] State: [place] City: [place] Zip code: [address] Past Medical History Allergies Allergen Reaction Date Comments Reported Percocet 07/24/2020 Admission Admission Data Admission Date: 07/22/2020 Admission Time: 23:56 Room #: D.2209 Procedure Procedure Types Cath Procedure Peripheral Cath Diagnostic Procedure PICC PICC Line Placement Procedure Description Procedure Date Procedure Date: 07/24/2020 Procedure Start Time: 10:28 Procedure Staff Name Function Matt Marcano MD Performing Physician LILIA STOVER RT Monitor Reid Sanchez RT Scrub Lexii Arrieta RN Nurse Kaveh NELSON RN Nurse Procedure Data Cath Procedure Fluoroscopy Diagnostic fluoroscopy Total fluoroscopy Time: 0.1 time: 0.1 min min Diagnostic fluoroscopy Total fluoroscopy dose: 0 dose: 0 mGy mGy Hemodynamics Rest Pre Cath Intra NCS Post Cath Procedure Log Time Note 9:55:47 Use device set IR Diagnostic 9:55:47 Sterile Angiographic Pack opened to sterile field. 9:55:48 Tegaderm 4 x 4 (1626W) opened to sterile field. 9:55:49 Bag Decanter () opened to sterile field. 9:55:55 PowerPICC 5Fr double lumen catheter opened to sterile field. 9:56:24 - 10:08:51 PICC 10:08:53 Time tracking: Regular hours (M-F 7:00 - 5:00) 10:08:57 Kaveh NELSON RN sent for patient. Start room use. 10:09:04 Patient received from Med/Surg to IR Alert and oriented. Tansferred to table in Supine position. 10:09:05 Signed procedure consent form obtained from patient. 10:09:09 Pre-procedure instructions explained to patient. 10:15:13 Left Arm area was prepped with chlora-prep and draped in sterile fashio n 10:15:37 Patient allergic to Percocet 10:15:40 Is patient on blood thinner?Yes 10:15:44 ACC The patient was administered the following blood thiners within the last 24 hours: Eliquis 10:23:25 --------ALL STOP TIME OUT------ 10:23:27 Final Timeout: patient, procedure, and site verified with staff and physician. All members of the team are in agreement. 10:23:31 Sharps counted by scrub and verified by R.N. 10:26:41 Procedure started. 10:26:41 Full Disclosure recording started 10:28:22 Venous access obtained using ultrasound guidance. 10:28:32 Local anesthetic to left subclavian vein with Lidocaine 1% by Matt Marcano MD.INITIAL ACCESS ONLY 10:30:32 PICC line was trimmed to 35cm and advanced to the superior vena cava.Position verified under fluoroscopy. 10:34:58 Right PICC Line removed intact and site bandaged with 4x4 and tegaderm 10:35:48 Procedure ended.(Physican Out) 10:37:05 Fluoroscopy time 00.10 minutes. 10:37:10 Fluoroscopy dose: 0 mGy 10:37:10 Flurop Dose total: 0 10:37:14 Sharps counted by scrub and verified by R.N. 10:37:17 Insertion/operative site no bleeding no hematoma. 10:37:23 Post-op/insertion site Left Subclavian vein dressed using a 4 x 4 and Tegaderm. 10:37:29 Procedure and supply charges have been captured, reviewed, submitted an d are correct. 10:37:30 Post procedure instruction explained to patient.Patient verbalizes understanding. 10:38:06 Report given to Med/Surg. 10:38:17 End room use (Document Last) Device Usage Item Name Manufacture Quantity Catalog Hospital Part Current Minimal Lot# / Number Charge Number Stock Stock Serial# Code [facility] 1 [id number] 5 Angiographic Health Pack Tegaderm 4 x 3M 1 [id number] 4 (1626W) Bag Decanter [employer] 1 2001S [id number] 5 (2001S) [employer] PowerPICC Bard 1 [id number] 5 5Fr double lumen catheter Signature Audit [place] Stage Time Signature Unsigned Intra-Procedure 07/24/2020 LILIA STOVER RT 10:39:54 AM (R) [facility] [address] [place] [address]
[~2020-07-22 22:37] MED LIST changes: -ELIQUIS5 MG PO; -VANCOMYCIN H1 G/VIA1 IV
[2020-07-22] MEDS ORDERED: VANCOMYCIN H1 G/VIA1 IV (22:43)
[2020-07-22 23:51] LABS: HEMATOCRIT 33.6 % (36.0-48.0); HEMOGLOBIN 11.1 g/dL (12-16); LYMPHOCYTES 25.5 % (15-50); MCH 31.3 pg (26.0-34.0); MEAN PLATELET VOLUME 11.6 fL (7.4-10.4); PLATELET COUNT 188 10x3/uL (130-400); RBC 3.55 10x6/uL (4.00-5.40); RDW 14.3 % (11.5-14.5)
[2020-07-22 23:55] LABS: MCV 94.6 fL (80.0-100.0); WBC 6.8 10x3/uL (4.8-10.8)
[2020-07-22 23:58] LABS: CALC OSMOLALITY 271 mosm/kg (275-300); CALCIUM 8.5 mg/dL (8.5-10.1); CARBON DIOXIDE 27.4 mmol/L (21.0-32.0); CHLORIDE - SERUM 105 mmol/L (98-107); CREATININE - SERUM 0.8 mg/dL (0.6-1.3); GLUCOSE 86 mg/dL (74-106); POTASSIUM - SERUM 3.2 mmol/L (3.5-5.1); SODIUM 137 mmol/L (136-145); eGFR NON AFRICAN AMERICAN 85 mL/min (90-120)
[2020-07-23] LABS: UREA NITROGEN 9 mg/dL (7-18)
[2020-07-23 00:05] LABS: ALBUMIN 3.4 g/dL (3.4-5.0); ALKALINE PHOSPHATASE 86 U/L (30-120); ALT (SGPT) 17 U/L (10-68); APTT 30.2 SECONDS (22.8-39.4); INR 0.97 (0.85-1.17); PROTEIN - SERUM 6.9 g/dL (6.4-8.2); PROTIME 12.9 SECONDS (11.6-15.0)
[2020-07-23 00:06] LABS: D-DIMER-QUANTITATIVE 0.83 ug/mLFEU (0.20-0.54)
--- NOTE | 2020-07-23 00:27 | NUR ---
COVID SWAB TO LAB.
[2020-07-23 01:32] VITALS: BP 146/85; BMI 30.5
[2020-07-23 04:00] VITALS: BP 144/85
[2020-07-23 05:11] LABS: ALBUMIN 2.8 g/dL (3.4-5.0); ALKALINE PHOSPHATASE 72 U/L (30-120); ALT (SGPT) 14 U/L (10-68); BILIRUBIN - TOTAL 0.25 mg/dL (0.2-1.3); CALC OSMOLALITY 276 mosm/kg (275-300); CALCIUM 8.3 mg/dL (8.5-10.1); CARBON DIOXIDE 25.1 mmol/L (21.0-32.0); CHLORIDE - SERUM 107 mmol/L (98-107); CREATININE - SERUM 0.8 mg/dL (0.6-1.3); GLUCOSE 91 mg/dL (74-106); MAGNESIUM - SERUM 1.8 mg/dL (1.8-2.4); POTASSIUM - SERUM 3.1 mmol/L (3.5-5.1); PROTEIN - SERUM 6.1 g/dL (6.4-8.2); SODIUM 140 mmol/L (136-145); eGFR NON AFRICAN AMERICAN 85 mL/min (90-120)
[2020-07-23 05:13] LABS: BASOPHILS 1.4 % (0-2); EOSINOPHILS 3.6 % (0-7); HEMOGLOBIN 10.1 g/dL (12-16); IMMATURE GRANULOCYTES 0.2 % (0-5); LYMPHOCYTES 32.8 % (15-50); MCH 29.7 pg (26.0-34.0); MCHC 31.6 g/dL (31.0-37.0); MCV 94.1 fL (80.0-100.0); MEAN PLATELET VOLUME 11.2 fL (7.4-10.4); MONOCYTES 7.6 % (2-11); NEUTROPHILS 54.4 % (40-80); PLATELET COUNT 200 10x3/uL (130-400); RDW 14.8 % (11.5-14.5); WBC 5.6 10x3/uL (4.8-10.8)
[2020-07-23 05:18] LABS: APTT 46.4 SECONDS (22.8-39.4); INR 1.44 (0.85-1.17); PROTIME 17.4 SECONDS (11.6-15.0)
[2020-07-23 05:28] LABS: UREA NITROGEN 6 mg/dL (7-18)
--- NOTE | 2020-07-23 06:50 | NUR ---
RESTING IN BED WITH EYES CLOSED. RESPIRATIONS EVEN AND UNLABORED. DAUGHTER AT BEDSIDE. RIGHT FOOT DRESSING WITH SPLINT. UP WITH KNEE WALKER, AT BEDSIDE. IV TO LEFT AC, NS INFUSING @ KVO. SITE PATENT WITHOUT REDNESS OR SWELLING. RESERVE RIGHT ARM, D/T DVT. CALL LIGHT IN REACH. WILL CONTINUE TO MONITOR.
[2020-07-23 08:23] VITALS: BP 122/88
[2020-07-23 09:28] LABS: % SATURATION 7 % (15-55); IRON 23 ug/dl (35-150); TOTAL IRON BIND CAPACITY 292 ug/dl (260-445); UNSAT IRON BIND CAPACITY 269 ug/dl (150-375)
[2020-07-23 09:52] LABS: THYROID STIMULATING HORMONE 0.9 uIU/mL (0.36-3.74)
--- NOTE | 2020-07-23 10:18 | NUR ---
I have reviewed this patient and I concur with the Shift Assessment completed by the Licensed Practical Nurse today this shift.
[2020-07-23 11:54] VITALS: BP 122/80
[2020-07-23 13:07] VITALS: BMI 30.4
[2020-07-23 13:13] VITALS: Ht 160 cm; Wt 78.0 kg
[2020-07-23 17:34] VITALS: BP 118/76
--- NOTE | 2020-07-23 17:53 | NUR ---
SITTING UP IN BED EATING SUPPER. NO C/O PAIN. NO S/S OF ACUTE DISTRESS NOTED. DENIES ANY NEEDS AT THIS TIME. CALL LIGHT IN REACH. WILL CONTINUE TO MONITOR.
[2020-07-23 21:26] VITALS: BP 111/72
--- NOTE | 2020-07-23 23:42 | NUR ---
PT IN BED, NO NEEDS NOTED, RESPIRATIONS EVEN/UNLABORED, SAFETY PRECAUTIONS IN PLACE, FLUIDS/CALL LIGHT WITHIN REACH, AT BEDSIDE
[2020-07-24] VITALS: BP 124/88
--- NOTE | 2020-07-24 00:15 | NUR ---
PT IV ZOYSN COMPLETED RAN NS TO FLUSH LINES, STARTED VANC PER ORDER, IV PATENT
--- NOTE | 2020-07-24 00:18 | NUR ---
PT ZOYSN STARTED IV PATENT AND FLOWING
--- NOTE | 2020-07-24 03:20 | NUR ---
PRN MORPHINE/ZOPHRAN GIVEN FOR 9 OF 10 INCISIONAL FOOT PAIN
[2020-07-24 04:00] VITALS: BP 104/77
[2020-07-24 04:47] LABS: BASOPHILS 1.3 % (0-2); EOSINOPHILS 3.1 % (0-7); HEMATOCRIT 31.4 % (36.0-48.0); HEMOGLOBIN 9.9 g/dL (12-16); IMMATURE GRANULOCYTES 0.2 % (0-5); LYMPHOCYTES 23.8 % (15-50); MCH 30.2 pg (26.0-34.0); MCHC 31.5 g/dL (31.0-37.0); MCV 95.7 fL (80.0-100.0); MEAN PLATELET VOLUME 11.2 fL (7.4-10.4); MONOCYTES 8.5 % (2-11); NEUTROPHILS 63.1 % (40-80); PLATELET COUNT 200 10x3/uL (130-400); RBC 3.28 10x6/uL (4.00-5.40); WBC 6.4 10x3/uL (4.8-10.8)
[2020-07-24 05:12] LABS: ALBUMIN 2.7 g/dL (3.4-5.0); ANION GAP 13.1 mmol/L (8-16); BILIRUBIN - TOTAL 0.3 mg/dL (0.2-1.3); CALCIUM 8.2 mg/dL (8.5-10.1); CARBON DIOXIDE 23.7 mmol/L (21.0-32.0); CREATININE - SERUM 0.9 mg/dL (0.6-1.3); PROTEIN - SERUM 5.9 g/dL (6.4-8.2)
[2020-07-24 05:20] LABS: POTASSIUM - SERUM 3.8 mmol/L (3.5-5.1)
[2020-07-24 06:27] LABS: BILIRUBIN NEGATIVE (NEGATIVE); KETONE NEGATIVE (NEGATIVE); NITRITE NEGATIVE (NEGATIVE); UROBILINOGEN NORMAL mg/dL (< 2)
[2020-07-24 06:29] LABS: BACTERIA FEW HPF (NONE SEEN); EPITHELIAL CELLS 0-5 /hpf (0-5)
[2020-07-24 06:30] LABS: YEAST >1+ /hpf (NONE SEEN)
--- NOTE | 2020-07-24 06:45 | NUR ---
A&O SITTING UP IN BED. NO C/O PAIN. NO S/S OF ACUTE DISTRESS NOTED. DENIES ANY NEEDS AT THIS TIME. CALL LIGHT IN REACH. WILL CONTINUE TO MONITOR.
[2020-07-24 08:53] VITALS: BP 120/72
[2020-07-24 12:01] VITALS: BP 131/86
[2020-07-24] MEDS ORDERED: ELIQUIS5 MG PO ×2 (12:36→12:37)
[2020-07-24] MEDS ORDERED: HYDROCODON-ACE1 EA10 PO (12:50)
--- NOTE | 2020-07-24 14:47 | MORECARE ---
CASE MANAGEMENT DISCHARGE SUMMARY PATIENT: ARLEN ROSS UNIT: [id number] ADM DATE: 07/22/20 AGE: 40 : [birth year] SEX: F ROOM/BED: D.2209 AUTHOR: MANDI HANKS PHYSICIAN: REFERRING PHYSICIAN: RASHAD MARIO MD DATE OF SERVICE: 07/24/20 Discharge Plan Patient Name: ARLEN ROSS Facility: [facility]:[place] : 1980 Planned Disposition: Home with Home Health Anticipated Discharge Date: Discharge Date: Expected LOS: Initial Reviewer: [email or web address] Initial Review Date: 07/23/2020 Generated: 07/24/20 3:47 pm Patient Name: ARLEN ROSS Page 21547 at 1447 All edits/amendments must be made on the electronic document DICTATION DATE: 07/24/201446 CLIP BOLTER AND WRAPPER: GRZEGORZ 07/24/201446 RPT#: [id number] DC DATE: STATUS: ADM IN [facility] [address] [place] [address] END OF REPORT
--- NOTE | 2020-07-24 14:56 | MORECARE ---
CASE MANAGEMENT DISCHARGE SUMMARY PATIENT: ARLEN ROSS UNIT: [id number] ADM DATE: 07/22/20 AGE: 40 : [birth year] SEX: F ROOM/BED: D.1153 AUTHOR: LATONYA,DOC PHYSICIAN: REFERRING PHYSICIAN: RASHAD MARIO MD DATE OF SERVICE: 07/24/20 Discharge Plan Patient Name: ARLEN ROSS Facility: [facility]:[place] : 1980 Planned Disposition: Home with Home Health Anticipated Discharge Date: Discharge Date: Expected LOS: Initial Reviewer: [email or web address] Initial Review Date: 07/23/2020 Generated: 07/24/20 3:55 pm Comments DCP- Discharge Planning Updated by [email or web address]: Darcy Townsend on 07/24/20 1:[address] Patient Name: ARLEN ROSS Admission Status: ER Accout number: [id number] Admission Date: 07-22-2020 : 1980 Admission Diagnosis:ACUTE EMBOLISM AND THROMBOSIS OF DEEP VEINS OF R UP EXT Attending: MARTI Current LOS: 2 Anticipated DC Date: Planned Disposition: Home with Home Health Primary Insurance: MEDICAID [place] Discharge Planning Comments: CM met with patient to complete initial dc planning assessment. CM educated patient on the CM role and verbal consent given by patient to complete assessment. Patient lives at home with her where she is independent with her care. At discharge patient plans to return home and feels this is a safe discharge. CM discussed availability of home health, rehab services, and medical equipment. She is current with [facility] and [place] IV ABX from last admission. She will continue with them as ordered by Dr Jorge. She has her Eliquis called into [facility] pharmacy where I spoke with Ed. Her knee scooter is at her bedside. [facility] signed to continue HH and IV ABX. Patient denied known discharge needs at this time. CM will continue to follow and will assist as needed with dc plans/needs. Secondary Market Manager: Darcy Townsend DCPIA - Discharge Planning Initial Assessment Updated by [email or web address]: Darcy Townsend on 07/24/20 2:49 pm * Is the patient Alert and Oriented? Yes * PCP [facility] * [facility]acy [facility] * Preadmission Environment Home with Family * ADLs Independent * Other Equipment KNEE SCOOTER * List name and contact numbers for known caregivers / representatives who currently or will assist patient after discharge: SILVIA ROSS * Verbal permission to speak to the caregivers and representatives has been obtained from the patient. N/A * Community resources currently utilized Home Health Infusion Services * Please name any agencies selected above. [facility] * Additional services required to return to the preadmission environment? No * Can the patient safely return to the preadmission environment? Yes * Has this patient been hospitalized within the prior 30 days at any hospital? Yes Last DP export: 07/24/20 1:48 p Patient Name: ARLEN ROSS Page 28035 at 1456 All edits/amendments must be made on the electronic document DICTATION DATE: 07/24/201454 ROCK DRILL OPERATOR: GRZEGORZ 07/24/201454 RPT#: [id number] DC DATE: STATUS: ADM IN [facility] [address] [place] [address] END OF REPORT
--- NOTE | 2020-07-24 15:06 | NUR ---
I have reviewed this patient and I concur with the Shift Assessment completed by the Licensed Practical Nurse today this shift.
--- NOTE | 2020-07-24 15:25 | MORECARE ---
CASE MANAGEMENT DISCHARGE SUMMARY PATIENT: ARLEN ROSS UNIT: [id number] ADM DATE: 07/22/20 AGE: 40 : [birth year] SEX: F ROOM/BED: D.9354 AUTHOR: LATONYA,DOC PHYSICIAN: REFERRING PHYSICIAN: RASHAD MARIO MD DATE OF SERVICE: 07/24/20 Discharge Plan Patient Name: ARLEN ROSS Facility: [facility]:[place] : 1980 Planned Disposition: Home with Home Health Anticipated Discharge Date: Discharge Date: Expected LOS: Initial Reviewer: [email or web address] Initial Review Date: 07/23/2020 Generated: 07/24/20 4:25 pm Comments DCP- Discharge Planning Updated by [email or web address]: Darcy Townsend on 07/24/20 1:[address] Patient Name: ARLEN ROSS Admission Status: ER Accout number: [id number] Admission Date: 07-22-2020 : 1980 Admission Diagnosis:ACUTE EMBOLISM AND THROMBOSIS OF DEEP VEINS OF R UP EXT Attending: MARTI Current LOS: 2 Anticipated DC Date: Planned Disposition: Home with Home Health Primary Insurance: MEDICAID [place] Discharge Planning Comments: CM met with patient to complete initial dc planning assessment. CM educated patient on the CM role and verbal consent given by patient to complete assessment. Patient lives at home with her where she is independent with her care. At discharge patient plans to return home and feels this is a safe discharge. CM discussed availability of home health, rehab services, and medical equipment. She is current with [facility] and [place] IV ABX from last admission. She will continue with them as ordered by Dr Jorge. She has her Eliquis called into [facility] pharmacy where I spoke with Ed. Her knee scooter is at her bedside. [facility] signed to continue HH and IV ABX. Patient denied known discharge needs at this time. CM will continue to follow and will assist as needed with dc plans/needs. Postal Supervisor: Darcy Townsend DCPIA - Discharge Planning Initial Assessment Updated by [email or web address]: Darcy Townsend on 07/24/20 2:49 pm * Is the patient Alert and Oriented? Yes * PCP [facility] * [facility] * Preadmission Environment Home with Family * ADLs Independent * Other Equipment KNEE SCOOTER * List name and contact numbers for known caregivers / representatives who currently or will assist patient after discharge: SILVIA ROSS * Verbal permission to speak to the caregivers and representatives has been obtained from the patient. N/A * Community resources currently utilized [facility] * Please name any agencies selected above. [facility] * Additional services required to return to the preadmission environment? No * Can the patient safely return to the preadmission environment? Yes * Has this patient been hospitalized within the prior 30 days at any hospital? Yes External Providers External Provider: [facility] Next Contact Date: Service Request Date: Service Type: Resolution: Reviewer: Comments: Coverage Notice Reviewer: [email or web address] Dennys Townsend Notice Issued Date-Time: 07/24/2020 14:00 Notice Type: Patient Choice Letter Notice Delivered To: Patient Relationship to Patient: Shredding Specialist Name: Delivery Method: HAND - Hand Delivered Laureen Days: Prior Verbal Notification: Recipient Understood Notice: Yes Recipient Signature: Yes Med Rec Note Co-signed by Attending: Coverage Notice Comment: hh and iv abx Last DP export: 07/24/20 1:56 p Patient Name: ARLEN ROSS Page 27530 at 1525 All edits/amendments must be made on the electronic document DICTATION DATE: 07/24/20 1525 BOILER COVERER HELPER: GRZEGORZ 07/24/20 1525 RPT#: [id number] DC DATE: STATUS: ADM IN [facility] [address] [place] [address] END OF REPORT
--- NOTE | 2020-07-24 16:02 | NUR ---
DISCHARGED PATIENT HOME WITH PICC LINE IN UPPER LEFT ARM TO CONTINUE IV ANTIBIOTICS. WENT OVER DISCHARGE INSTRUCTIONS WITH PATIENT, VERBALIZED UNDERSTANDING. DENIES ANYTHING FURTHER.
--- NOTE | 2020-07-24 17:51 | MORECARE ---
CASE MANAGEMENT DISCHARGE SUMMARY PATIENT: ARLEN ROSS UNIT: [id number] ADM DATE: 07/22/20 AGE: 40 : 82 SEX: F ROOM/BED: D.9992 AUTHOR: LATONYA,DOC PHYSICIAN: REFERRING PHYSICIAN: RASHAD MARIO MD DATE OF SERVICE: 07/24/20 Discharge Plan Patient Name: ARLEN ROSS Facility: [facility]:[place] : 1980 Planned Disposition: Home with Home Health Anticipated Discharge Date: Discharge Date: 07/24/2020 Expected LOS: Initial Reviewer: [email or web address] Initial Review Date: 07/23/2020 Generated: 07/24/20 6:51 pm Comments DCP- Discharge Planning Updated by [email or web address]: Darcy Townsend on 07/24/20 1:[address] Patient Name: ARLEN ROSS Admission Status: ER Accout number: [id number] Admission Date: 07-22-2020 : 1980 Admission Diagnosis:ACUTE EMBOLISM AND THROMBOSIS OF DEEP VEINS OF R UP EXT Attending: MARTI Current LOS: 2 Anticipated DC Date: Planned Disposition: Home with Home Health Primary Insurance: MEDICAID [place] Discharge Planning Comments: CM met with patient to complete initial dc planning assessment. CM educated patient on the CM role and verbal consent given by patient to complete assessment. Patient lives at home with her where she is independent with her care. At discharge patient plans to return home and feels this is a safe discharge. CM discussed availability of home health, rehab services, and medical equipment. She is current with [facility] and [facility] from last admission. She will continue with them as ordered by Dr Jorge. She has her Eliquis called into [facility] pharmacy where I spoke with Ed. Her knee scooter is at her bedside. ODELL signed to continue HH and IV ABX. Patient denied known discharge needs at this time. CM will continue to follow and will assist as needed with dc plans/needs. Windows Application Developer: Darcy Townsend DCPIA - Discharge Planning Initial Assessment Updated by [email or web address]: Darcy Townsend on 07/24/20 2:49 pm * Is the patient Alert and Oriented? Yes * PCP [facility] * Pharmacy [facility] * Preadmission Environment Home with Family * ADLs Independent * Other Equipment KNEE SCOOTER * List name and contact numbers for known caregivers / representatives who currently or will assist patient after discharge: SILVIA ROSS * Verbal permission to speak to the caregivers and representatives has been obtained from the patient. N/A * Community resources currently utilized [facility] * Please name any agencies selected above. [facility] * Additional services required to return to the preadmission environment? No * Can the patient safely return to the preadmission environment? Yes * Has this patient been hospitalized within the prior 30 days at any hospital? Yes Coverage Notice Reviewer: [email or web address] Dennys Townsend Notice Issued Date-Time: 07/24/2020 14:00 Notice Type: Patient Choice Letter Notice Delivered To: Patient Relationship to Patient: Multi Spindle Operator Name: Delivery Method: HAND - Hand Delivered Laureen Days: Prior Verbal Notification: Recipient Understood Notice: Yes Recipient Signature: Yes Med Rec Note Co-signed by Attending: Coverage Notice Comment: hh and iv [facility] Last DP export: 07/24/20 2:25 p Patient Name: ARLEN ROSS Page [id number] at 1751 All edits/amendments must be made on the electronic document DICTATION DATE: 07/24/201750 MONITORING TECH: GRZEGORZ 07/24/201750 RPT#: [id number] DC DATE:07/24/20 STATUS: DIS IN [facility] [address] [place] [address] END OF REPORT
[2020-07-26 09:12] LABS: LUPUS - INTERPRETATION Comment: (()); LUPUS - THROMBIN TIME 17.3 sec (0.0-23.0); LUPUS - dRVVT 124.8 sec (0.0-47.0); LUPUS - dRVVT CONFIRMATION 1.1 ratio (0.8-1.2); PTT-LA 46.9 sec (0.0-51.9)
== END 2020-07-24 16:03 | disposition home health service (06) | DRG 300 ==
LOC: D.ER 22:37 → D.MS 23:56
PROVIDERS: Family Medicine; Internal Medicine Hematology & Oncology; ADMIT Family Medicine; ATTEND Family Medicine
DX: I82.621 Acute embolism and thrombosis of deep veins of right upper extremity (principal); M86.8X7 Other osteomyelitis, ankle and foot; D64.9 Anemia, unspecified; E87.6 Hypokalemia; A59.9 Trichomoniasis, unspecified; B37.9 Candidiasis, unspecified

== ENCOUNTER → 2020-07-29 16:23 | Outpatient (CLI) | payer MEDICAID ==
[2020-07-23 13:13] VITALS: BMI 30.5
[~2020-07-29 16:23] MED LIST changes: +ELIQUIS5 MG PO; +VANCOMYCIN H1 G/VIA1 IV
[2020-07-29 17:46] LABS: BASOPHILS 0.9 % (0-2); EOSINOPHILS 7.1 % (0-7); HEMATOCRIT 33.7 % (36.0-48.0); HEMOGLOBIN 10.6 g/dL (12-16); LYMPHOCYTES 19.2 % (15-50); MCHC 31.5 g/dL (31.0-37.0); MCV 95.5 fL (80.0-100.0); MEAN PLATELET VOLUME 11.7 fL (7.4-10.4); MONOCYTES 9.3 % (2-11); NEUTROPHILS 63.5 % (40-80); PLATELET COUNT 221 10x3/uL (130-400); RBC 3.53 10x6/uL (4.00-5.40); RDW 14.6 % (11.5-14.5); WBC 4.5 10x3/uL (4.8-10.8)
[2020-07-29 18:14] LABS: C-REACTIVE PROTEIN 1.7 mg/dL (0.0-0.9); CREATININE - SERUM 0.8 mg/dL (0.6-1.3); VANCOMYCIN - TROUGH 15.9 ug/mL (10.0-20.0)
[2020-07-29 18:59] LABS: ERYTHROCYTE SEDIMENTATION RATE 29 mm/hr (0-20)
== END | disposition home or self-care (01) ==
LOC: D.US 11:00 → D.LAB 16:23 → D.US 16:23
PROVIDERS: ATTEND Clinical Nurse Specialist Family Health
DX: M79.602 Pain in left arm (principal); M86.9 Osteomyelitis, unspecified

== ENCOUNTER → 2020-08-05 13:18 | Outpatient (CLI) | payer MEDICAID ==
[2020-07-23 13:13] VITALS: BMI 30.5
[2020-08-05 13:49] LABS: BASOPHILS 2.3 % (0-2); EOSINOPHILS 4.9 % (0-7); HEMATOCRIT 35.2 % (36.0-48.0); HEMOGLOBIN 11.3 g/dL (12-16); LYMPHOCYTES 25.4 % (15-50); MCH 30.1 pg (26.0-34.0); MCHC 32.1 g/dL (31.0-37.0); MCV 93.9 fL (80.0-100.0); MEAN PLATELET VOLUME 11.9 fL (7.4-10.4); MONOCYTES 11.1 % (2-11); NEUTROPHILS 56.3 % (40-80); PLATELET COUNT 254 10x3/uL (130-400); RBC 3.75 10x6/uL (4.00-5.40); RDW 14.2 % (11.5-14.5); WBC 3.9 10x3/uL (4.8-10.8)
[2020-08-05 14:00] LABS: CREATININE - SERUM 0.7 mg/dL (0.6-1.3); VANCOMYCIN - TROUGH 16.3 ug/mL (10.0-20.0)
[2020-08-05 15:04] LABS: ERYTHROCYTE SEDIMENTATION RATE 28 mm/hr (0-20)
== END | disposition home or self-care (01) ==
LOC: D.LAB 13:18
PROVIDERS: ATTEND Family Medicine
DX: M86.9 Osteomyelitis, unspecified (principal)

== ENCOUNTER → 2021-02-14 14:04 | Outpatient (CLI) | payer MEDICAID ==
[2020-07-23 13:13] VITALS: BMI 30.5
== END | disposition home or self-care (01) ==
LOC: D.MRI 13:00
PROVIDERS: ATTEND Orthopaedic Surgery
DX: S43.431A Superior glenoid labrum lesion of right shoulder, initial encounter (principal)